=== PATIENT | female | born 1990 | race Caucasian/White ===

== ENCOUNTER 2024-03-23 08:17 | Emergency (ER) | payer BC | END 2024-03-23 10:36 | disposition home or self-care (01) | LOC: DL.ED 08:17 | DX: O99.891 Other specified diseases and conditions complicating pregnancy (principal); R51.9 Headache, unspecified; R42 Dizziness and giddiness; Z3A.35 35 weeks gestation of pregnancy; W06.XXXA Fall from bed, initial encounter; W22.09XA Striking against other stationary object, initial encounter | CPT/HCPCS: 99283 ==